=== PATIENT | female | born 1975 | race Caucasian/White ===

== ENCOUNTER 2024-05-14 12:54 | Outpatient (CLI) | payer BC ==
[2024-05-14 13:44] LABS: #Eosinophils 0.99 10x3/uL (0.0-0.5); #Monocytes 1.13 10x3/uL (0.0-1.1); #Neutrophils 3.59 10x3/uL (1.5-8.4); %Basophils 1.1 % (0.0-2.0); %Eosinophils 11.1 % (0.0-6.0); %Lymphocytes 34.6 % (18.0-47.0); %Monocytes 12.7 % (0.0-10.0); %Neutrophils 40.3 % (40.0-75.0); Hematocrit 40.3 % (34.9-44.5); Hemoglobin 13.2 g/dL (12.0-15.5); Mean Corpuscular HGB CONC 32.8 g/dL (32.0-36.0); Mean Corpuscular Hemoglobin 29.1 pg (27.0-33.0); Mean Platelet Volume 8.4 fL (7.4-10.4); Platelet Count 510 10x3/uL (150-450); RBC Distribution Width 14.4 % (11.5-14.5); Red Blood Cell (RBC) Count 4.53 10x6/uL (3.90-5.03); White Blood Cell (WBC) Count 8.9 10x3/uL (3.5-10.5)
[2024-05-14 13:59] LABS: ALT (SGPT) 33 U/L (8-55); AST (SGOT) 29 U/L (5-34); Albumin 3.7 g/dL (3.5-5.0); Alkaline Phosphatase 59 U/L (40-110); Anion Gap 15 mmol/L (10-20); BUN (Urea Nitrogen) 7 mg/dL (7.0-18.7); Bilirubin, Total 0.4 mg/dL (0.2-1.2); Calc. Creatinine Clearance 0 mL/min (70-130); Calcium 9.5 mg/dL (7.8-10.44); Carbon Dioxide 24 mmol/L (22-29); Chloride 103 mmol/L (98-107); Estimated GFR 83; Globulin 3.7 g/dL (2.4-3.5); Glucose 101 mg/dL (70-105); Potassium 3.9 mmol/L (3.5-5.1); Protein, Total 7.4 g/dL (6.0-8.3); Sodium 138 mmol/L (136-145)
== END 2024-05-14 12:55 | disposition home or self-care (01) ==
LOC: CSHLAB 12:54
PROVIDERS: ATTEND Specialist
DX: Z01.812 Encounter for preprocedural laboratory examination (principal); K80.20 Calculus of gallbladder without cholecystitis without obstruction
CPT/HCPCS: 80053; 85025

== ENCOUNTER 2024-05-21 05:58 | Day surgery (SDC) | payer BC ==
[2024-05-14 13:20] VITALS: BMI 33.7
[2024-05-21] MEDS ORDERED: Acetaminophen 500 MG TAB ONE (06:32)
[2024-05-21] MEDS ORDERED: Ketorolac Tromethamine 30 MG (1 mL) VIAL ONE (06:32)
[2024-05-21] MEDS ORDERED: Glucagon 1 MG/ML KIT ONE (06:54)
[2024-05-21] MEDS ORDERED: Indocyanine Green 25 MG/10 ML VIAL ONE (06:55)
[2024-05-21] MEDS ORDERED: Bupivacaine/Epinephrine 0.25% 30 ML VIAL ONE (06:55)
[2024-05-21] MEDS ORDERED: Lidocaine 2% PF 5 ML VIAL ONE (07:09)
[2024-05-21] MEDS ORDERED: PROPOFOL 20 ML ONE (07:09)
[2024-05-21] MEDS ORDERED: Lidocaine 4% PF 5 ML AMP ONE (07:11)
[2024-05-21] MEDS ORDERED: Rocuronium Bromide 10 MG/ML (10ML VIAL) ONE (07:12)
[2024-05-21] MEDS ORDERED: Dexamethasone 20 MG/5 ML VIAL ONE (07:12)
[2024-05-21] MEDS ORDERED: Ondansetron PF 4 MG/2 ML Vial ONE (07:12)
[2024-05-21] MEDS ORDERED: fentaNYL 50 mcg/mL 1 mL Vial ONE ×5 (07:15→08:53)
[2024-05-21] MEDS ORDERED: CEFAZOLIN 2 GM VIAL ONE (07:20)
[2024-05-21] MEDS ORDERED: Midazolam HCl 2 mg/2 ml Vial ONE (07:26)
[2024-05-21] MEDS ORDERED: SUGAMMADEX SODIUM 200 MG/2 ML VIAL ONE (08:05)
[2024-05-21] MEDS ORDERED: HYDROcodone/Acetaminophen 5/325 mg Tablet ONE (09:37)
== END 2024-05-21 10:10 | disposition home or self-care (01) ==
LOC: CSHSDC 05:58
PROVIDERS: ATTEND Specialist
PROC: 0FT44ZZ Resection of Gallbladder, Percutaneous Endoscopic Approach (ICD-10-PCS; principal; 2024-05-21)
DX: K80.10 Calculus of gallbladder with chronic cholecystitis without obstruction (principal); K51.90 Ulcerative colitis, unspecified, without complications; Z87.59 Personal history of other complications of pregnancy, childbirth and the puerperium; Z88.0 Allergy status to penicillin; Z88.8 Allergy status to other drugs, medicaments and biological substances; Z79.899 Other long term (current) drug therapy
CPT/HCPCS: 88304; C1889; J1100; J1611; J1885; J2250; J2405; J2704; J3010; S2900

== ENCOUNTER 2024-07-25 12:02 | Outpatient (CLI) | payer BC | END 2024-07-25 12:03 | disposition home or self-care (01) | LOC: CSHMAMMO 12:02 | PROVIDERS: ATTEND Family Medicine | DX: Z12.31 Encounter for screening mammogram for malignant neoplasm of breast (principal); Z80.3 Family history of malignant neoplasm of breast | CPT/HCPCS: 77063; 77067 ==